=== PATIENT | male | born 1970 | race Caucasian/White ===

== ENCOUNTER 2017-05-26 10:15 | Day surgery (SDC) | payer OTHER ==
[~2017-05-26] VITALS: Ht 180.3 cm; Wt 84.6 kg
[~2017-05-26 10:15] MED LIST: ASPI-496 PO; ATOR-2 PO; COLE625T12 PO; INSU100C SQ-INSULIN; INSU100I11 SC; INSU100I28 SQ-INSULIN; INSU100I32 SC; INSU100V13 SC; LISI-167 PO; OXYC5TAB3 PO; POLY17PO5 PO; ROSU40TA PO
[2017-05-26] MEDS ORDERED: LACTATED RINGERS 1,000 ML IV SCH (10:51)
[2017-05-26 11:02] VITALS: BP 132/94
[2017-05-26] MEDS ORDERED: BUPIVACAINE/PF 0.5% ONE ×2 (11:08→12:05)
[2017-05-26 11:44] LABS: ASPARTATE AMINO TRANSFERASE 12 U/L (15-37); BLOOD UREA NITROGEN 20 mg/dL (7-18)
[2017-05-26] MEDS ORDERED: FENTANYL PF 100 MCG/2ML ONE ×2 (11:50→12:50)
[2017-05-26] MEDS ORDERED: MIDAZOLAM 1 MG/ML, 2ML ONE (11:50)
[2017-05-26] MEDS ORDERED: EPINEPHRINE 1 MG/ML, 1ML ONE (12:05)
[2017-05-26] MEDS ORDERED: SCOPOLAMINE PATCH, 1.5MG PATCH.TD72 TD ONE (12:12)
[2017-05-26] MEDS ORDERED: PROPOFOL 10 MG/ML, 20ML ONE (12:26)
[2017-05-26] MEDS ORDERED: DEXAMETHASONE 4 MG/ML, 1ML ONE (12:26)
[2017-05-26] MEDS ORDERED: ONDANSETRON 2MG/ML, 2ML ONE (12:26)
[2017-05-26] MEDS ORDERED: CEFAZOLIN 1,000 MG ONE (12:26)
[2017-05-26] MEDS ORDERED: METOCLOPRAMIDE 5 MG/ML, 2ML ONE (12:26)
[2017-05-26] MEDS ORDERED: BUPIVACAINE/PF 0.5% INFIL ONE (13:06)
[2017-05-26] MEDS ORDERED: EPINEPHRINE 1 MG/ML, 1ML INFIL ONE (13:06)
[2017-05-26] MEDS ORDERED: LABETALOL 5MG/ML, 20ML IV PRN (13:30)
[2017-05-26] MEDS ORDERED: DIAZEPAM 5 MG/ML, 2ML IVPush PRN (13:30)
[2017-05-26] MEDS ORDERED: PROMETHAZINE 25 MG/ML, 1ML IV PRN (13:30)
[2017-05-26] MEDS ORDERED: ACETAMINOPHEN 325 MG TABLET PO PRN (13:30)
[2017-05-26] MEDS ORDERED: MIDAZOLAM 1 MG/ML, 2ML IV PRN (13:30)
[2017-05-26] MEDS ORDERED: FENTANYL PF 100 MCG/2ML IV PRN (13:30)
[2017-05-26] MEDS ORDERED: ONDANSETRON 2MG/ML, 2ML IVPush PRN (13:30)
[2017-05-26] MEDS ORDERED: OXYcodone 5 MG/5 ML ORAL.SOL UDC PO PRN (13:30)
[2017-05-26] MEDS ORDERED: MEPERIDINE/PF 25MG/0.5ML IVPush PRN (13:30)
[2017-05-26] MEDS ORDERED: HYDROmorphone 1 MG/ML, 1ML IV PRN (13:30)
[2017-05-26] MEDS ORDERED: ALBUTEROL/IPRATROPIUM 2.5MG/0.5MG, 3 ML NPPB PRN (13:30)
[2017-05-26] MEDS ORDERED: hydrALAzine 20 MG/ML, 1ML IV PRN (13:30)
[2017-05-26] MEDS ORDERED: BACITRACIN 50,000 UNIT ONE (13:52)
[2017-05-26] MEDS ORDERED: BACITRACIN 50,000 UNIT IM ONE (13:56)
[2017-05-26] MEDS ORDERED: ACETAMINOPHEN 650 MG/20.3 ML UDC ONE (14:44)
[2017-05-26] MEDS ORDERED: OXYcodone 5 MG/5 ML ORAL.SOL UDC ONE (14:45)
== END 2017-05-26 17:20 ==
LOC: OUT 10:15
PROVIDERS: ATTEND Orthopaedic Surgery
DX: M19.032 Primary osteoarthritis, left wrist (principal); E11.9 Type 2 diabetes mellitus without complications; I10 Essential (primary) hypertension; Z86.73 Personal history of transient ischemic attack (TIA), and cerebral infarction without residual deficits; K21.9 Gastro-esophageal reflux disease without esophagitis; Z88.8 Allergy status to other drugs, medicaments and biological substances; Z91.041 Radiographic dye allergy status; Z91.040 Latex allergy status
CPT/HCPCS: 25825; 36415; 73100; 76001; 80053; 82962; C1713; J0171; J0690; J1100; J2250; J2405; J2704; J2765; J3010; J3490; J7120